=== PATIENT | male | born 1980 | race Caucasian/White ===

== ENCOUNTER 2017-03-19 12:23 | Emergency (ER) | payer SELFPAY ==
[~2017-03-19] VITALS: Ht 162.6 cm; Wt 68.0 kg
[2017-03-19 12:26] VITALS: Ht 162.6 cm; Wt 68.0 kg
[2017-03-19] MEDS ORDERED: ALBUTEROL 0.083% (NEB) 2.5 MG/3 ML AMP NEB STA (13:51)
[2017-03-19] MEDS ORDERED: DEXAMETHASONE 10 MG/ML 1 ML INJ IM ONE (14:00)
--- NOTE | 2017-03-19 14:39 | RADRPT ---
PROCEDURE: Chest Radiograph. CLINICAL INDICATION: Shortness of breath TECHNIQUE: Single frontal chest radiograph. COMPARISON: None available FINDINGS: The cardiomediastinal silhouette is within normal limits. No infiltrate or effusion is seen. Th e bones are intact. IMPRESSION: 1. Unremarkable chest radiograph. RPTAT: KK .Shan Dobson MD, MD Date Time Electronically viewed and signed by .Shan Dobson MD, on 03/19/2017 14:39 .B/
[2017-03-19] MEDS ORDERED: IPRA12.93 INH (14:58)
[2017-03-19 15:25] VITALS: BP 131/87; PULSE 77; RESP 18
--- NOTE | 2017-03-19 16:24 | ERD ---
ER Documentation Chief Complaint Date/Time DATE: 03/19/17 TIME: 16:23 Chief Complaint ASTHMA EXACERBATION STARTED TODAY HPI This is a 37 year old male with history of asthma presenting to the emergency department complaining of shortness of breath since this morning. Patient states that he uses albuterol inhaler 3 times today. He states his last dose was 1 hour ago and he does feel some improvement since he uses inhaler an hour ago. Patient denies any fever, chest pain or significant cough. ROS All systems reviewed and are negative except as per history of present illness. Medications Home Meds Active Scripts Ipratropium Lewis* (Atrovent HFA*) 12.9 Gm Aer.w.adap, 2 PUFF INH Q6 Y for SHORTNESS OF BREATH, #1 EA Prov:VIDAL LUCERO PA-C 03/19/17 Allergies Allergies: Coded Allergies: No Known Allergy (Unverified , 03/19/17) PMhx/Soc Medical and Surgical Hx: pt denies Surgical Hx Hx Alcohol Use: No Hx Substance Use: No Hx Tobacco Use: No Physical Exam Vitals Vital Signs Date Time Temp Pulse Resp B/P Pulse Ox O2 Delivery O2 Flow Rate FiO2 03/19/17 15:25 77 18 131/87 99 Room Air 03/19/17 14:02 75 18 96 21 03/19/17 12:26 98.1 85 20 128/87 95 Physical Exam GENERAL: well-developed/well-nourished, in no apparent distress, non-toxic appearing HEAD: NC/AT, no swelling noted in frontal or maxillary areas EARS: bilateral tympanic membrane is intact without erythema or effusion NARES: nares patent, rhinorrhea and congested THROAT: oropharynx erythematous without exudates, no tonsil enlargement, post nasal drip EYES: Conjunctiva normal NECK: Supple, no lymphadenopathy PULM: Decreased breath sounds bilaterally CV: Normal S1S2, RRR, good capillary refill GI: Soft, non-distended, normal bowel sounds, non-tender BACK: No midline tenderness, no masses EXT No clubbing, cyanosis, or edema NEURO: Alert and Orientated SKIN: Intact, normal turgor PSYCH: Normal mood and mentation Results 24 hrs Current Medications Medications (Trade) Dose Ordered Sig/Alexsandra Route PRN Reason Start Time Stop Time Status Last Admin Dose Admin Dexamethasone (Decadron) 10 mg ONCE ONCE IM 03/19/17 14:00 03/19/17 14:01 DC 03/19/17 13:55 Albuterol (Proventil 0.083% (Neb)) 5 mg ONCE STAT NEB 03/19/17 13:51 03/19/17 13:52 DC 03/19/17 14:00 Procedures/MDM 37-year-old male patient presents to the ER with asthma exacerbation, low suspicion for status asthmaticus, pneumonia, inhaled foreign body, or other life threatening pulmonary emergencies due to physical examination. RT was consulted in the ED, breathing treatment was administered. Patient was saturating well on room air and wheezing improved. He significant feels better. Patient was given Decadron 10 mg IM. Hemodynamically stable for discharge for home.. Prescription for Atrovent nebulizing treatment was given, discussed to have a close follow-up with a primary care physician, discussed to return to the ED if not improving as expected or if condition worsens. Patient understood and agreed with this plan. Departure Diagnosis: Primary Impression: Asthma exacerbation Condition: Stable Patient Instructions: Understanding Asthma Triggers, Asthma Medications Ref[facility]: [facility] Usted se osorio hecho un examen mdico de control que le indica que no est en antonella condicin que requiera tratamiento urgente en el Departamento de Emergencia. Un estudio ms profundo y el tratamiento de zaragoza condicin pueden esperar sin ningn riesgo hasta que usted sea atendida/o en el consultorio de zaragoza mdico o antonella cl agata. Es responsabilidad suya arreglar antonella keshia para el seguimiento del bill. MANEJO DE CONDICIONES NO URGENTES EN EL FUTURO 1) Si usted tiene un mdico de atencin primaria: Usted debera llamar a zaragoza mdico de atencin primaria antes de venir al departamento de emergencia. Despus de las horas de consultorio, zaragoza doctor o zaragoza asociado/a est disponible por telfono. El mdico o enfermero de adore en el servicio telefnico puede asesorarle por jamila medio para atender el problema, o bill contrario se puede programar antonella keshia. 2) Si usted no tiene un mdico de atencin primaria: Llame al mdico o clnica de referencia que aparece abajo faith las horas de consultorio para hacer antonella keshia para que le vean. CLINICAS: [facility] [phone] [facility] [phone] [facility] [phone] [facility] [phone] [place] [address] [phone] [facility] [phone] [facility] Additional Instructions: Visite a zaragoza mdico maana para un EXAMEN.Regrese a estas instalaciones si no se mejora rigoberto esperbamos o rigoberto le dijimos. Wade toda la medicina parish y rigoberto se le indic. Regrese a estas instalaciones si no se mejora rigoberto esperbamos o rigoberto le dijimos. VIDAL LUCERO PA-C March 19, 2017 16:24
== END 2017-03-19 15:27 | disposition home or self-care (01) ==
LOC: FTE 12:23
DX: J45.901 Unspecified asthma with (acute) exacerbation (principal)
CPT/HCPCS: 71010; 94664; 96372; 99284; J1100